=== PATIENT | female | born 1945 | race Caucasian/White ===

== ENCOUNTER 2018-05-20 11:26 | Emergency (ER) | payer BC, OTHER ==
[~2018-05-20] VITALS: Ht 160 cm; Wt 66.7 kg
[2018-05-20 11:31] VITALS: BP 170/77; PULSE 86; RESP 18; Ht 160 cm; Wt 66.7 kg
--- NOTE | 2018-05-20 12:14 | ERD ---
ER Documentation Chief Complaint Chief Complaint LT LEG WOUND X 3 MONTHS S/P FALL HPI The patient is a 72-year-old female, presenting to the ER because of chronic left leg wound for more than 3 months after she fell. She has been seen at [facility], urgent care and most recently [facility] infectious disease hospitalist about 2 weeks ago. She had extensive workup done, including stool and wound culture. She is requesting antibiotic. She denies fever, chills, neck pain, chest pain, abdominal pain, complains of chronic nausea, denies dysuria, diarrhea ROS All systems reviewed and are negative except as per history of present illness. Medications Home Meds Active Scripts Ondansetron (Ondansetron Odt) 4 Mg Tab.rapdis, 4 MG PO Q6H PRN for NAUSEA AND/OR VOMITING, #20 TAB Prov:OMAYRA HASKINS MD 05/20/18 Bacitracin* (Bacitracin Oint (UD)*) 1 Applic Oint, 1 APPLIC TOP TID for 7 Days, PKT APPLY TO Prov:OMAYRA HASKINS MD 05/20/18 Clindamycin Hcl* (Clindamycin Hcl*) 300 Mg Capsule, 300 MG PO QID for 7 Days, CAP Prov:OMAYRA HASKINS MD 05/20/18 Reported Medications Hydrocodone/Acetaminophen ([place] 10-325 Tablet) 1 Each Tablet, 1 EACH PO Q4 PRN for PAIN, TAB 05/20/18 Duloxetine Hcl* (Cymbalta*) 20 Mg Capsule.dr, 20 MG PO DAILY, CAP 05/20/18 Allergies Allergies: Coded Allergies: Sulfa (Sulfonamide Antibiotics) (Verified Allergy, Unknown, 05/20/18) PMhx/Soc History of Surgery: Yes (hip surgery, back surgery) Hx Miscellaneous Medical Probl: Yes (exposure to hazardous materials 20 years ago) Hx Alcohol Use: No Hx Substance Use: No Hx Tobacco Use: No Smoking Status: Never smoker Physical Exam Vitals Vital Signs Date Temp Pulse Resp B/P (MAP) Pulse Ox O2 O2 Flow FiO2 Time Delivery Rate 05/20/18 98.2 69 16 150/81 95 Room Air 13:12 (104) 05/20/18 98.3 86 18 170/77 97 11:31 (108) Physical Exam Const: No acute distress. Head: Atraumatic. Eyes: Normal Conjunctiva. ENT: Normal External Ears, Nose and Mouth. Neck: Full range of motion. No meningismus. Resp: Clear to auscultation bilaterally. Cardio: Regular rate and rhythm. Abd: Soft, non distended, normal bowel sounds, non tender. Skin: No petechiae or rashes. Back: No midline or flank tenderness. Ext: Chronic ulcer at the left distal leg with minimal discharge, no calf tenderness Neur: Awake and alert. No focal deficit Psych: Normal Mood and Affect. Results 24 hrs Current Medications Medications Dose Sig/Lindsey Start Time Status Last (Trade) Ordered Route PRN Stop Time Admin Dose Reason Admin Ondansetron 4 mg ONCE STAT 05/20/18 DC 05/20/18 HCl (Zofran ODT 12:51 13:00 Odt) 05/20/18 12:52 Procedures/MDM MEDICAL MAKING DECISION: The patient is a 72-year-old female, presenting with a chronic ulcer of the left lower extremity, the wound was cleaned with normal saline and dressed with bacitracin, she is stable for outpatient follow-up. She was given Zofran ODT for now sent with good response The differential diagnoses considered include but are not limited to cellulitis, abscess, DVT Departure Diagnosis: Primary Impression: Cellulitis Condition: Good Comments She was discharged with clindamycin I discussed the findings with the patient. I advised the patient to follow-up with the primary physician and at the [facility] amputation prevention center in about 2-3 days, sooner if needed and return if any concern. Disclaimer: Inadvertent spelling and grammatical errors are likely due to EHR/dictation software use and do not reflect on the overall quality of patient care. Also, please note that the electronic time recorded on this note does not necessarily reflect the actual time of the patient encounter. OMAYRA HASKINS MD May 20, 2018 12:14
[2018-05-20] MEDS ORDERED: CLIN300C10 PO (12:47)
[2018-05-20] MEDS ORDERED: BACITUD TOP (12:48)
[2018-05-20] MEDS ORDERED: DULO20CA43 PO (12:50)
[2018-05-20] MEDS ORDERED: HYDR-3980 PO (12:50)
[2018-05-20] MEDS ORDERED: ONDANSETRON (ODT) 4 MG TAB ODT STA (12:51)
[2018-05-20] MEDS ORDERED: ONDA4TAB14 PO (13:27)
== END 2018-05-20 14:13 | disposition home or self-care (01) ==
LOC: E/R 11:26
DX: L03.116 Cellulitis of left lower limb (principal)
CPT/HCPCS: 87070; 99283

== ENCOUNTER 2018-07-05 07:49 | Emergency (ER) | payer OTHER ==
[~2018-07-05] VITALS: Ht 154.9 cm; Wt 69.5 kg
[~2018-07-05 07:49] MED LIST: BACITUD TOP; CLIN300C10 PO; DULO20CA43 PO; HYDR-3980 PO; ONDA4TAB14 PO
[2018-07-05 07:56] VITALS: BP 146/77; PULSE 86; RESP 18; Ht 154.9 cm; Wt 69.5 kg
[2018-07-05] MEDS ORDERED: KETOROLAC 30 MG INJ IM STA (10:01)
[2018-07-05] MEDS ORDERED: DEXAMETHASONE 10 MG/ML 1 ML INJ IM ONE (10:30)
[2018-07-05] MEDS ORDERED: NAPR500T8 PO (11:18)
[2018-07-05] MEDS ORDERED: PRED20TA PO (11:28)
--- NOTE | 2018-07-05 15:30 | ERD ---
ER Documentation Chief Complaint Chief Complaint C/O BODY ACHE FROM FALL 2 WEEKS AGO HPI History of Present Illness: 73-year-old female with complaint of body pain secondary to fall. Patient reports having a fusion in 1993. Patient denies loss of consciousness with fall. Patient denies any chest pain, shortness of breath, palpitations associated fall. Patient is describing a Mechanical fall. Patient with multiple procedures to neck, back, elbow, hip. At home pharmacological/nonpharmacological treatment for symptoms: Denies Denies social concerns; Denies recent foreign travel ROS All systems reviewed and are negative except as per history of present illness. Medications Home Meds Active Scripts Prednisone* (Prednisone*) 20 Mg Tab, 40 MG PO DAILY for SCIATICA FLAREUP/INFLAMMATION for 5 Days, TAB Prov:PANCHITO PAK NP 07/05/18 Naproxen* (Naproxen EC*) 500 Mg Tablet.dr, 500 MG PO BID PRN for PAIN AND/OR INFLAMMATION, #30 TAB Prov:PANCHITO PAK V METALIZER 07/05/18 Ondansetron (Ondansetron Odt) 4 Mg Tab.rapdis, 4 MG PO Q6H PRN for NAUSEA AND/OR VOMITING, #20 TAB Prov:OMAYRA HASKINS MD 05/20/18 Bacitracin* (Bacitracin Oint (UD)*) 1 Applic Oint, 1 APPLIC TOP TID for 7 Days, PKT APPLY TO Prov:OMAYRA HASKINS MD 05/20/18 Clindamycin Hcl* (Clindamycin Hcl*) 300 Mg Capsule, 300 MG PO QID for 7 Days, CAP Prov:OMAYRA HASKINS MD 05/20/18 Reported Medications Hydrocodone/Acetaminophen ([place] 10-325 Tablet) 1 Each Tablet, 1 EACH PO Q4 PRN for PAIN, TAB 05/20/18 Duloxetine Hcl* (Cymbalta*) 20 Mg Capsule.dr, 20 MG PO DAILY, CAP 05/20/18 Allergies Allergies: Coded Allergies: Sulfa (Sulfonamide Antibiotics) (Verified Allergy, Unknown, 05/20/18) PMhx/Soc History of Surgery: Yes (hip surgery, back surgery) Hx Miscellaneous Medical Probl: Yes (exposure to hazardous materials 20 years ago) Hx Alcohol Use: No Hx Substance Use: No Hx Tobacco Use: No Smoking Status: Never smoker FmHx Family History: coronary disease; No diabetes Physical Exam Vitals Vital Signs Date Temp Pulse Resp B/P (MAP) Pulse Ox O2 O2 Flow FiO2 Time Delivery Rate 07/05/18 98.1 86 18 146/77 97 07:56 (100) Physical Exam Const: No acute distress Head: Atraumatic Eyes: Normal Conjunctiva ENT: Normal External Ears, Nose and Mouth. Neck: Full range of motion. No meningismus. Resp: Clear to auscultation bilaterally Cardio: Regular rate and rhythm, no murmurs Abd: Soft, non tender, non distended. Normal bowel sounds Skin: No petechiae or rashes Back: No midline or flank tenderness. Midline tenderness to cervical. Midline tenderness to lumbar, paraspinal tenderness positive. Ext: No cyanosis, or edema Neur: Awake and alert Psych: Normal Mood and Affect Results 24 hrs Current Medications Medications Dose Sig/Lindsey Start Time Status Last (Trade) Ordered Route PRN Stop Time Admin Dose Reason Admin 8 mg ONCE ONCE 07/05/18 DC 07/05/18 Dexamethasone IM 10:30 10:16 (Decadron) 07/05/18 10:31 Ketorolac 30 mg ONCE STAT 07/05/18 DC 07/05/18 Tromethamine IM 10:01 10:16 (Toradol) 07/05/18 10:05 Procedures/MDM ED course includes a thorough examination and history. Medications: Dexamethasone, Toradol Imaging: CT, x-ray of lumbar quadrant. Labs: -- Low suspicion for life-threatening medical emergency. Low suspicion for neurological emergency requires hospitalization or intervention. low Suspicion for cauda equina. Patient reports that she has dribbling of urine that has been present for years that has not worsened. No loss of bowel or bladder. Otherwise healthy patient presenting with constellation of symptoms likely representing left-sided sciatica/neck pain/back pain secondary to fall as characterized by history, physical exam findings, Radiologic findings. No respiratory distress, otherwise relatively well appearing and nontoxic. Patient educated on inability to prescribe medication stronger than what she has at home. Patient reports she has [place] and several other opiate type medications that she receives for her chronic pain. Patient educated on diagnoses, prescriptions, follow-up care, return precautions. Strict return precautions given for worsening condition; questions answered discharge. Patient stable. Disposition for discharge with followup in 2 days with PCP/clinic. Departure Diagnosis: Primary Impression: Sciatica, left side Additional Impressions: Chronic neck and back pain Fall Encounter type: initial encounter Qualified Codes: W19.XXXA - Unspecified fall, initial encounter Condition: Stable Patient Instructions: Understanding Sciatica, Back Pain W/ Sciatica, Fall Prevention Referrals: COMMUNITY CLINICS YOU HAVE RECEIVED A MEDICAL SCREENING EXAM AND THE RESULTS INDICATE THAT YOU DO NOT HAVE A CONDITION THAT REQUIRES URGENT TREATMENT IN THE EMERGENCY DEPARTMENT. FURTHER EVALUATION AND TREATMENT OF YOUR CONDITION CAN WAIT UNTIL YOU ARE SEEN IN YOUR DOCTORS OFFICE WITHIN THE NEXT 1-2 DAYS. IT IS YOUR RESPONSIBILITY TO MAKE AN APPOINTMENT FOR FOLOW-UP CARE. IF YOU HAVE A PRIMARY DOCTOR --you should call your primary doctor and schedule an appointment IF YOU DO NOT HAVE A PRIMARY DOCTOR YOU CAN CALL OUR PHYSICIAN REFERRAL HOTLINE AT IF YOU CAN NOT AFFORD TO SEE A PHYSICIAN YOU CAN CHOSE FROM THE FOLLOWING [facility] [address] [facility]. [facility] [address] [facility]. [facility] [address] [facility] [facility] [address] [facility] [address] [facility]. [facility] [address] [facility]. [facility] YOU HAVE RECEIVED A MEDICAL SCREENING EXAM AND THE RESULTS INDICATE THAT YOU DO NOT HAVE A CONDITION THAT REQUIRES URGENT TREATMENT IN THE EMERGENCY DEPARTMENT. FURTHER EVALUATION AND TREATMENT OF YOUR CONDITION CAN WAIT UNTIL YOU ARE SEEN IN YOUR DOCTORS OFFICE WITHIN THE NEXT 1-2 DAYS. IT IS YOUR RESPONSIBILITY TO MAKE AN APPOINTMENT FOR FOLOW-UP CARE. IF YOU HAVE A PRIMARY DOCTOR --you should call your primary doctor and schedule and appointment IF YOU DO NOT HAVE A PRIMARY DOCTOR YOU CAN CALL OUR PHYSICIAN REFERRAL HOTLINE AT . IF YOU CAN NOT AFFORD TO SEE A PHYSICIAN YOU CAN CHOSE FROM THE FOLLOWING [facility] INSTITUTIONS: [facility] [address] [place] [address] [facility] [address] [place] [address] [facility] + [address] [place] [address] Additional Instructions: Thank you very much for allowing us to participate in your care. Your health and safety is our top priority at [facility]. It is important to read all discharge instructions and education provided in your discharge packet. Call your primary care doctor TOMORROW for an appointment during the next 2-4 days and bring all the information and medications prescribed. It is very important to follow with your primary care doctor and your pain management doctor for further evaluation and modification of your medications if they decide to make any changes. We cannot give you anything stronger here at the ER. Have prescriptions filled and follow precisely the directions on the label. -Naproxen is a anti-inflammatory/pain medication; take this medication daily as prescribed for the next week to help with swelling/inflammation/pain. --Prednisone is a steroid, which decreases inflammation; uses medication every morning with breakfast to decrease inflammation associated with your back, sciatica If the symptoms get worse and your provider is unavailable, return to the Emergency Department immediately. If you develop complete loss of bowel or bladder, return to emergency department immediately. PANCHITO PAK NP Jul 05, 2018 15:30
== END 2018-07-05 11:43 | disposition home or self-care (01) ==
LOC: FTE 07:49
DX: M54.32 Sciatica, left side (principal); M54.9 Dorsalgia, unspecified
CPT/HCPCS: 72100; 72125; 96372; 99285; J1100; J1885